=== PATIENT | male | born 1970 | race Caucasian/White ===

== ENCOUNTER 2019-05-20 10:46 | Observation (INO) ==
[2019-05-20] MEDS ORDERED: POLYMYXIN B 500,000 UNIT VIAL ONE (13:56)
[2019-05-20] MEDS ORDERED: BACITRACIN OINT 0.9 GM PACK TOP ONE ×3 (13:56→14:58)
[2019-05-20] MEDS ORDERED: LACTATED RINGERS 500 ML IV SCH (14:30)
[2019-05-20] MEDS ORDERED: ceFAZolin 1,000 MG VIAL ONE (14:57)
[2019-05-20] MEDS ORDERED: LIDOCAINE 1%/EPI INJ 20 ML VIAL ONE (14:57)
[2019-05-20] MEDS ORDERED: BACITRACIN OPH OINT 3.5 GM TUBE ONE (15:39)
[2019-05-20] MEDS ORDERED: TISSUE ADHESIVE 1 EACH APPLICATOR TOP ONE (15:41)
[2019-05-20] MEDS ORDERED: MIDAZOLAM 2 MG/2 ML VIAL ONE (16:11)
[2019-05-20] MEDS ORDERED: fentaNYL 100 MCG/2 ML VIAL ONE (16:11)
[2019-05-20] MEDS ORDERED: propofoL 200 MG/20 ML VIAL IV ONE (16:11)
[2019-05-20] MEDS ORDERED: LIDOCAINE 2% 5 ML VIAL ONE (16:11)
[2019-05-20] MEDS ORDERED: SEVOFLURANE 1 UNIT/15 MINUTE INH ONE (16:12)
[2019-05-20] MEDS ORDERED: MINERAL OIL/PETROLATUM OPH OINT 3.5 GM TUBE ONE (16:12)
[2019-05-20] MEDS ORDERED: SUCCINYLCHOLINE 200 MG/10 ML VIAL ONE (16:12)
[2019-05-20] MEDS ORDERED: LACTATED RINGERS 1,000 ML IV ONE (16:12)
[2019-05-20] MEDS ORDERED: ROCURONIUM 100 MG/10 ML VIAL IV ONE (16:12)
[2019-05-20] MEDS ORDERED: ONDANSETRON 4 MG/2 ML VIAL ONE (16:12)
[2019-05-20] MEDS ORDERED: ONDANSETRON 4 MG/2 ML VIAL IV PRN (16:42)
[2019-05-20] MEDS ORDERED: KETOROLAC 30 MG/1 ML VIAL IV PRN (16:42)
[2019-05-20] MEDS ORDERED: diphenhydrAMINE 50 MG/1 ML VIAL IV PRN (16:42)
[2019-05-20] MEDS ORDERED: ACETAMINOPHEN 500 MG TABLET PO PRN (16:42)
[2019-05-20] MEDS ORDERED: LACTATED RINGERS 1,000 ML IV SCH (17:00)
[2019-05-20] MEDS: cefTRIAXone 1,000 MG in SYRINGE 1 EACH IV SCH (17:43)
[2019-05-20] MEDS: DEXAMETHASONE 4 MG/1 ML VIAL IV SCH (17:43)
[2019-05-21] MEDS: DEXAMETHASONE 4 MG/1 ML VIAL IV SCH ×2 (01:26→09:18)
[2019-05-21] MEDS: cefTRIAXone 1,000 MG in SYRINGE 1 EACH IV SCH (05:20)
[2019-05-21 08:29] VITALS: BP 120/79
== END 2019-05-21 13:57 | disposition home or self-care (01) ==
LOC: EDUNIT# → N.ED 10:46 → N.3E 13:05 → N.SDS 13:05 → N.SDSINP 13:05 → N.3E 16:43
PROVIDERS: ADMIT Otolaryngology; ATTEND Otolaryngology